=== PATIENT | female | born 1980 | race Caucasian/White ===

== ENCOUNTER → 2024-11-10 | Outpatient (CLI) | payer BC | END | disposition home or self-care (01) | LOC: LAB 16:00 | PROVIDERS: ATTEND Family Medicine | DX: E83.52 Hypercalcemia (principal) ==

== ENCOUNTER 2025-06-10 14:52 | Emergency (ER) | payer BC ==
[~2025-06-10] VITALS: Ht 170.1 cm; Wt 81.6 kg
[2025-06-10] MEDS ORDERED: HYDROmorphONE Hydrochloride 0.5 MG/0.5 ML SYRINGE IV ONE ×2 (15:10→16:15)
[2025-06-10] MEDS ORDERED: Ondansetron Hydrochloride 4 MG/2 ML VIAL IV ONE (15:10)
[2025-06-10] MEDS ORDERED: SODIUM CHLORIDE 0.9% 1,000 ML IV ONE (15:10)
[2025-06-10 15:30] LABS: BASO # 0.0 10*3/uL (0.0-0.1); BASO % 0.5 % (0.0-1.0); EOS # 0.1 10*3/uL (0.0-0.4); EOS % 2.1 % (1.0-4.0); MEAN CELL VOLUME 97.5 fl (81.0-99.0); MEAN CORPUSCULAR HGB 32.3 pg (27.0-31.0); MEAN PLATELET VOLUME 9.3 fl (9.6-12.3); MONO # 0.4 10*3/uL (0.1-1.0); MONO % 6.7 % (3.0-9.0); NEUT # 3.6 10*3/uL (2.3-7.9); NEUT % 63.5 % (47.0-73.0); NUCLEATED RED BLOOD CELL 0.0 % (0.0-0.0); NUCLEATED RED BLOOD CELL 0.0 10*3/uL (0.0-0.0); PLATELET COUNT AUTOMATED 377 10*3/uL (130-400); RED CELL DISTRI WIDTH 13.0 % (0-14.5)
[2025-06-10 15:50] LABS: BUN 13 mg/dl (9-23)
[2025-06-10 16:38] LABS: BILIRUBIN Negative (Negative); BLOOD 3+ (Negative); CLARITY Cloudy (Clear); COLOR Yellow (Yellow); KETONE 2+ (Negative); LEUKO ESTERASE Trace (Negative); NITRITE Negative (Negative); PH 5.5 (4.5-8.0); SPECIFIC GRAVITY 1.025 (1.001-1.030); UROBILINOGEN 1.0 E.U./dl (0.0-1.0)
[2025-06-10 16:45] LABS: RBC TNTC rbc/hpf (0-2)
[2025-06-10 16:46] LABS: BACTERIA TRACE; HYALINE CAST 0-2
[2025-06-10] MEDS ORDERED: FLOMAX0.4 MG PO ×2 (17:12→17:47)
[2025-06-10] MEDS ORDERED: PERCOCET 5-3251 EACH PO ×2 (17:12→17:47)
[2025-06-10] MEDS ORDERED: OMNICEF300 MG PO ×2 (17:12→17:47)
[2025-06-10] MEDS ORDERED: Ondansetron4 MG PO ×2 (17:12→17:47)
== END 2025-06-10 17:26 | disposition home or self-care (01) ==
LOC: ED 14:52
PROVIDERS: Nurse Practitioner Family
DX: N13.2 Hydronephrosis with renal and ureteral calculous obstruction (principal)